=== PATIENT | female | born 1975 | race Caucasian/White ===

== ENCOUNTER → 2018-06-27 13:20 | Outpatient (CLI) | payer OTHER, SELFPAY ==
[2018-07-01 14:26] LABS: HPV Reflexed? NOT INDICATED
== END ==
PROVIDERS: Visit Provider Obstetrics & Gynecology
DX: Z12.4 Encounter for screening for malignant neoplasm of cervix (principal)
CPT/HCPCS: 88175; G0145

== ENCOUNTER → 2018-08-20 10:48 | Outpatient (CLI) | payer OTHER, SELFPAY ==
--- NOTE | 2018-08-20 10:50 | BI_ITS ---
MAMMOGRAPHY - BILATERAL SCREENING REASON FOR EXAM: Female, 43 years old. Routine annual screening examination. PERTINENT HISTORY: Aunts with breast cancer. TECHNIQUE: Digital bilateral breast gus (3D mammographic acquisition) in the CC and MLO projections. 2-D mediolateral oblique (MLO) and craniocaudad (CC) views of both breasts were obtained. CAD: Full Field Digital Mammography with Computer Added Detection was performed. COMPARISON: None. Baseline examination. FINDINGS: Breast Composition: There are scattered areas of fibroglandular density. There are no dominant masses or suspicious calcifications. No other significant abnormalities are identified. BI/SCREENING MAMM (CAD), BILAT IMPRESSION: Negative screening mammogram. Yearly followup mammogram recommended. (A) ASSESSMENT CATEGORY: BIRADS Category 1: Negative. A letter regarding these results will be sent to the patient by the facility within 30 days. Approximately 10% of breast cancers are not detected by mammography. A normal mammogram should not delay biopsy of a clinically suspicious abnormality. [id number] Electronically Signed: Adiel Benton MD at 13:16 EST Tel [phone], Service support ,
== END ==
PROVIDERS: Family Provider Family Medicine; PCP Family Medicine; Referring Provider Obstetrics & Gynecology; Visit Provider Obstetrics & Gynecology
DX: Z12.31 Encounter for screening mammogram for malignant neoplasm of breast (principal)
CPT/HCPCS: 77063; 77067

== ENCOUNTER → 2020-01-16 11:25 | Outpatient (CLI) | payer OTHER, SELFPAY ==
[2014-06-01 08:41] VITALS: BMI 35.2
[2020-01-16 15:21] LABS: Absolute Lymphocyte Count 1.26 X10^3/uL (0.83-4.51); Absolute Neutrophil Count 3.7 X10^3/uL (2.0-7.7); Basophil# 0.03 X10^3/uL; Basophil% 0.6 % (0-1); Eosinophil# 0.03 X10^3/uL; Eosinophils% 0.6 % (0-5); Hemoglobin 9.9 g/dL (12.0-15.0); Lymphocyte # 1.26 X10^3/ul (4.0); Mean Corpuscular Hgb 23.4 pg (27.0-32.0); Mean Platelet Vol. 10.9 fl (6.2-12.0); Monocyte# 0.25 X10^3/uL; Monocyte% 4.8 % (0-10); NRBC Flagged by Analyzer 0 % (0-5); Neutrophil # 3.66 X10^3/uL (2.7-7.7); Neutrophil % 69.8 % (47-70); Platelet Count 344 K/mm3 (150-450); RBC Distribution Width CV 17.4 % (11.6-14.6); RBC Distribution Width SD 49.2 fl (35.1-43.9); Red Blood Count 4.23 M/mm3 (4.2-5.4); White Blood Count 5.2 K/mm3 (4.4-11.0)
[2020-01-16 15:43] LABS: ALB/GLOB Ratio 0.9 RATIO (0.9-2.4); AST(SGOT) 26 U/L (15-37); Alanine Aminotransfer ALT/SGPT 38 U/L (13-56); Albumin, Serum 3.7 g/dL (3.2-5.0); Alkaline Phosphatase 78 U/L (45-117); Anion Gap 7 (5-15); BUN 11 mg/dL (7-18); BUN/Creat Ratio 14.3 RATIO (10-20); Calcium,Total 8.8 mg/dL (8.5-10.1); Chloride 108 mmol/L (98-107); Cholesterol 243 mg/dL (200); Creatinine, Serum 0.77 mg/dL (0.55-1.02); EST Glomerular Filtration Rate 88 mL/min (>60); Est Glom Filt Rate - Afr Amer 106 mL/min (>60); Globulin 3.9 g/dL (2.2-4.2); Glucose 95 mg/dL (74-106); High Density Lipoprotein 39 mg/dL; Potassium 3.9 mmol/L (3.5-5.1); Protein, Total 7.6 g/dL (6.4-8.2); Sodium Level 139 mmol/L (136-145); T4 Free Direct 1.18 ng/dL (0.76-1.46); Thyroid Stim Hormone (TSH) 0.89 uIU/mL (0.358-3.74); Triglycerides 80 mg/dL; Very Low Density Lipoprotein 16 mg/dL (5-40)
[2020-01-17 12:17] LABS: Ferritin 4 ng/mL (8-252); Iron 18 ug/dL (50-170); Iron Binding Capacity,Total 438 ug/dL (250-450); PERCENT IRON SATURATION 4.1 % (15.0-55.0)
[2020-01-17 13:26] LABS: Vitamin B12 832 pg/mL (211-911)
[2020-01-20 20:17] LABS: Anti-Thyroglobulin AB < 1.0 IU/mL (0.0-0.9); Thyroglobulin, Serum Qt. 39.8 ng/mL (1.5-38.5); Thyroid Peroxidase AB < 9 IU/mL (0-34)
== END ==
PROVIDERS: PCP Family Medicine; Visit Provider Family Medicine
DX: Z00.00 Encounter for general adult medical examination without abnormal findings (principal); E01.0 Iodine-deficiency related diffuse (endemic) goiter
CPT/HCPCS: 36415; 80053; 80061; 82607; 82728; 83540; 83550; 84432; 84439; 84443; 85025; 86376; 86800

== ENCOUNTER → 2020-01-27 09:13 | Outpatient (CLI) | payer OTHER, SELFPAY ==
--- NOTE | 2020-01-27 09:22 | US_ITS ---
STUDY: THYROID ULTRASOUND REASON FOR EXAM: Female, 44 years old. ENLARGED THYROID TECHNIQUE: Ultrasound evaluation of the thyroid was performed with real-time and static mc-scale imaging. COMPARISON: None. FINDINGS: RIGHT LOBE: The right lobe of the thyroid gland measures 5.4 x 2.1 x 1.9 cm. There is a homogeneous echotexture. There is a solid hypoechoic 0.5 x 0.4 x 0.3 cm nodule. LEFT LOBE: The left lobe of the thyroid gland measures 5.0 x 1.8 x 1.6 cm. There is a homogeneous echotexture. There is a solid hypoechoic 0.4 x 0.4 x 0.3 similar nodule ISTHMUS: The isthmus measures 0.5 cm. The regional lymph nodes are normal. US/Thyroid IMPRESSION: Borderline enlarged homogeneous thyroid gland with bilateral subcentimeter hypoechoic nodules. Sonography cannot distinguish between benign and aggressive nodules. Recommend either short-term, 3-6 month follow-up ultrasound to be sure stability of the nodules or further evaluation with thyroid uptake study to assess uptake characteristics. Electronically Signed: Jonathan Nelson MD at 17:02 EDT , Service support ,
== END ==
PROVIDERS: PCP Family Medicine; Referring Provider Family Medicine; Visit Provider Family Medicine
DX: E01.0 Iodine-deficiency related diffuse (endemic) goiter (principal)
CPT/HCPCS: 76536

== ENCOUNTER → 2020-02-18 12:00 | Outpatient (CLI) | payer OTHER, SELFPAY ==
[2014-06-01 08:41] VITALS: BMI 35.2
[2020-02-18 15:07] LABS: Absolute Lymphocyte Count 1.34 X10^3/uL (0.83-4.51); Absolute Neutrophil Count 3.5 X10^3/uL (2.0-7.7); Basophil# 0.05 X10^3/uL; Eosinophil# 0.03 X10^3/uL; Eosinophils% 0.6 % (0-5); Hematocrit 34.9 % (37-47); Hemoglobin 10.7 g/dL (12.0-15.0); Lymphocyte # 1.34 X10^3/ul (4.0); Lymphocyte % 25.6 % (19-41); Mean Corp Hgb Conc 30.7 g/dL (32-36); Mean Corpuscular Hgb 25.2 pg (27.0-32.0); Mean Corpuscular Volume 82.1 fL (81-99); Mean Platelet Vol. 11.1 fl (6.2-12.0); Monocyte# 0.34 X10^3/uL; Monocyte% 6.5 % (0-10); NRBC Flagged by Analyzer 0 % (0-5); Neutrophil # 3.46 X10^3/uL (2.7-7.7); Neutrophil % 66.1 % (47-70); Platelet Count 310 K/mm3 (150-450); RBC Distribution Width CV 19.3 % (11.6-14.6); RBC Distribution Width SD 57.2 fl (35.1-43.9); Red Blood Count 4.25 M/mm3 (4.2-5.4); White Blood Count 5.2 K/mm3 (4.4-11.0)
[2020-02-18 15:41] LABS: Ferritin 10 ng/mL (8-252); Iron 30 ug/dL (50-170); Iron Binding Capacity,Total 413 ug/dL (250-450)
== END ==
PROVIDERS: PCP Family Medicine; Referring Provider Family Medicine; Visit Provider Family Medicine
DX: D50.9 Iron deficiency anemia, unspecified (principal)
CPT/HCPCS: 36415; 82728; 83540; 83550; 85025

== ENCOUNTER → 2020-04-14 | Outpatient (CLI) | payer OTHER, SELFPAY ==
--- NOTE | 2020-04-14 | EMB_PTH ---
PATIENT: BRANDT MUNROE LOC: [facility] U#:[id number] AGE/SX: 44/F ROOM: RE04/14/[address]: Dr. Ximena Byers, : 1975 BED: DIS: 04/14/2020 SPEC #: [id number] RECD: 04/14/20 17:08 STATUS: RADHA DANIELLE #: [id number] CORY: 04/14/20 00:[address]: Ximena Byers DEPT: SURGICAL PATHOLOGY RECD BY: Gerry Rollins ENTERED: 04/15/20 09:06 SP TYPE: ENDOM BX/C RIK DR: Dr. Wan Christensen MD Tissues: Endometrium, NOS Procedures: Surgery Specimen Level IV HEADER OPERATION: Endometrial biopsy PRE-OP DIAGNOSIS: Abnormal uterine bleeding TISSUE SUBMITTED: Endometrial biopsy MICROSCOPIC DIAGNOSIS Endometrium, biopsy: Weakly proliferative endometrium with focal glandular breakdown. AM:carlos 04/16/20 MICROSCOPIC DESCRIPTION Slides are reviewed. GROSS DESCRIPTION Received in fixative is one container labeled with the patient's name and designated EMB. The specimen consists of multiple fragments of hemorrhagic soft tissue mixed with mucoid tissue that in aggregate measure 2.5 x 1.5 x 0.2 cm. The specimen is totally submitted in one cassette. / KYLE:carlos 04/15/20 TC:5 CPT: 88193
== END | disposition home or self-care (01) ==
LOC: LABSPEC 04-15 06:06
PROVIDERS: PCP Family Medicine; Referring Provider Student in an Organized Health Care Education/Training Program; Visit Provider Student in an Organized Health Care Education/Training Program
DX: N85.8 Other specified noninflammatory disorders of uterus (principal)
CPT/HCPCS: 88305

== ENCOUNTER → 2020-05-11 11:19 | Outpatient (CLI) | payer OTHER, SELFPAY ==
[2014-06-01 08:41] VITALS: BMI 35.2
[2020-05-11 15:23] LABS: Absolute Lymphocyte Count 1.64 X10^3/uL (0.83-4.51); Absolute Neutrophil Count 5.9 X10^3/uL (2.0-7.7); Basophil# 0.05 X10^3/uL; Basophil% 0.6 % (0-1); Eosinophil# 0.04 X10^3/uL; Eosinophils% 0.5 % (0-5); Hematocrit 39.8 % (37-47); Hemoglobin 12.3 g/dL (12.0-15.0); Lymphocyte # 1.64 X10^3/ul (4.0); Lymphocyte % 20.3 % (19-41); Mean Corp Hgb Conc 30.9 g/dL (32-36); Mean Corpuscular Hgb 26.5 pg (27.0-32.0); Mean Corpuscular Volume 85.6 fL (81-99); Mean Platelet Vol. 10.9 fl (6.2-12.0); Monocyte# 0.47 X10^3/uL; Monocyte% 5.8 % (0-10); NRBC Flagged by Analyzer 0 % (0-5); Neutrophil # 5.85 X10^3/uL (2.7-7.7); Neutrophil % 72.6 % (47-70); Platelet Count 281 K/mm3 (150-450); RBC Distribution Width CV 16.6 % (11.6-14.6); RBC Distribution Width SD 52.1 fl (35.1-43.9); Red Blood Count 4.65 M/mm3 (4.2-5.4); White Blood Count 8.1 K/mm3 (4.4-11.0)
[2020-05-11 15:40] LABS: ALB/GLOB Ratio 0.9 RATIO (0.9-2.4); AST(SGOT) 53 U/L (15-37); Alanine Aminotransfer ALT/SGPT 99 U/L (13-56); Albumin, Serum 3.7 g/dL (3.2-5.0); Alkaline Phosphatase 77 U/L (45-117); Anion Gap 5 (5-15); BUN 9 mg/dL (7-18); Calcium,Total 8.7 mg/dL (8.5-10.1); Chloride 107 mmol/L (98-107); Cholesterol 177 mg/dL (200); Creatinine, Serum 0.75 mg/dL (0.55-1.02); EST Glomerular Filtration Rate 90 mL/min (>60); Est Glom Filt Rate - Afr Amer 108 mL/min (>60); Ferritin 10 ng/mL (8-252); Glucose 83 mg/dL (74-106); High Density Lipoprotein 45 mg/dL; Iron 45 ug/dL (50-170); Iron Binding Capacity,Total 416 ug/dL (250-450); Potassium 4.2 mmol/L (3.5-5.1); Protein, Total 7.7 g/dL (6.4-8.2); Sodium Level 138 mmol/L (136-145); Triglycerides 68 mg/dL; Very Low Density Lipoprotein 14 mg/dL (5-40)
[2020-05-12 11:01] LABS: Hepatitis B Surface Antigen Non-Reactive (Nonreactive); Hepatitis C Antibody Non-Reactive (Nonreactive)
[2020-05-13 17:25] LABS: Hepatitis Be Ab Negative (Negative)
== END ==
PROVIDERS: PCP Family Medicine; Referring Provider Family Medicine; Visit Provider Family Medicine
DX: E78.5 Hyperlipidemia, unspecified (principal); D50.9 Iron deficiency anemia, unspecified; R79.89 Other specified abnormal findings of blood chemistry
CPT/HCPCS: 36415; 80053; 80061; 82728; 83540; 83550; 85025; 86707; 86803; 87340

== ENCOUNTER 2020-06-25 10:26 | Inpatient (IN) | payer OTHER, SELFPAY ==
[2020-06-18 12:12] LABS: Hematocrit 41.8 % (37-47); Hemoglobin 13.3 g/dL (12.0-15.0); Mean Corp Hgb Conc 31.8 g/dL (32-36); Mean Corpuscular Hgb 28.1 pg (27.0-32.0); Mean Corpuscular Volume 88.2 fL (81-99); Mean Platelet Vol. 10.8 fl (6.2-12.0); Platelet Count 250 K/mm3 (150-450); RBC Distribution Width CV 15.5 % (11.6-14.6); RBC Distribution Width SD 50.1 fl (35.1-43.9); Red Blood Count 4.74 M/mm3 (4.2-5.4); White Blood Count 6.4 K/mm3 (4.4-11.0)
[2020-06-18 12:21] LABS: International Normalized Ratio 1.1; Prothrombin Time (Protime)PT. 13.2 SECONDS (11.7-14.9)
[2020-06-18 12:22] LABS: Partial Thromboplast Time 24.4 Seconds (24.1-36.2)
--- NOTE | 2020-06-24 18:39 | PCM.HPOB.BLA ---
History and Physical Date of Admission: 06/25/20 Date: 06/24/2020 Name: BRANDT MATUTE Age: 45 Date of : 1975 Surgical History and Physical Date: 06/24/2020 Name: BRANDT MATUTE Age: 45 Date of : 1975 Brandt Matute, a 45 year old female 2 0 5 0 2, presents for KONG-BS on June 25, 2020. Patient reports irregular, heavy periods. Brings a log of her periods for the past 7 months. LMP 03/22/2020, stopped bleeding 04/09. Heavy bleeding x 4 days; saturates an overnight pad q hr during the day and night ( with 1 night being the worst) prohibiting her from leaving the house. She reports blood clots during menses, cramping, but she does not take anything for it and does not use a heating pad. Hx known fibroids, last pelvic US here was 07/2018. Hx BTO. Med list updated. Consent signed for Endometrial Biopsy. Hx BTO. Denies any known allergy to Betadine. kbm EMB was completed and benign. Ultrasound showed 13 cm uterus. Consent signed. Hysterectomy / Salpingectomy literature given. Coupon Chlorhexidine Body Wash given to be picked up @ [facility] Retail pharmacy today. Reviewed shower instructions. MEDICATIONS HISTORY: Patient is also takin. Calcium Magnesium 500 mg calcium -250 mg tablet, 1 daily 2. aspirin 81 mg chewable tablet, One tablet by mouth 2 x daily 3. Crestor 20 mg tablet, One tablet by mouth once daily ALLERGIES: Percocet, Severe itching, Vicodin, Severe itching, Percocet, Itching of skin, Vicodin and Itching of skin Infections - Chicken Pox, UTI's Illnesses - no serious past illnesses, hyperlipidemia and MTHFR (no VTE) Accidents - no injuries of consequence Hospitalizations - see surgery SAB's x 5 Review of Systems: GENERAL - Denies fever, or chills SKIN - Denies skin changes EYES - Denies visual changes EARS - Denies difficulty hearing NOSE - Denies nasal congestion or bleeding MOUTH - Denies sore throat or difficulty swallowing NECK - Denies pain or swelling RESPIRATORY - Denies shortness of breath or wheezing CARDIOVASCULAR - Denies palpitations or chest pain GASTROINTESTINAL - Denies nausea, vomiting, diarrhea, constipation GENITOURINARY - Denies dysuria, frequency of urination, incontinence of urine MUSCULOSKELETAL - Denies joint or muscle pain NEUROLOGICAL - Denies localized numbness or weakness PSYCHIATRIC - Denies depression or anxiety ENDOCRINE - Denies heat or cold intolerance, weight loss or gain HEMATO-IMMUNOLOGIC - Denies excesive bleeding with cuts SOCIAL HISTORY: Alcohol Use - denies drinking Smoking - Never Diet - balanced Diet Lifestyle - moderate stress lifestyle and Exercise - walking, tread mill Seat Belt Use - always Employer - [employer] Illicit Drug Use - denies use of street drugs Sexual Activity - single sexual partner and Residence - lives with Place of - [place], [place] Spouse-Sig Other Name - Jeremías Matute Spouse-Sig Other Occupation - [employer] Spouse-Sig Other Phone No - [phone] Children Name(s) - Wan Veronica '10 Ty Oakley '14 Control - BTO FAMILY HISTORY: Father: Heart Disease. Maternal Grandfather: NIDDM and Heart Disease. Paternal Grandfather: Heart Disease. Maternal Aunt: Breast cancer. MENSTRUAL HISTORY: LMP Known?- DefiniteAmount/Duration - 20 days, Regularity - Regular, Frequency - monthly days, Prior Menses - 12/16/2003, LMP - 06/17/20, Age Onset Menarche - 14 PAST PREGNANCIES: Total Pregnancies - 7; Full Term Pregnancies - 2; Premature - 0; Abortions, Induced - 0; Abortions, Spontaneous - 5; Ectopics - 0; Multiple Births - 0; Living Children - 2 SURGICAL HISTORY: 1. 03/23/2011 gallbladder ; - 2. 06/01/2014 /enterolysis, Lap BTO with filshie ; Yari Snyder MD - 3. 04/21/2006 Appendectomy ; Dr Lozada - 4. 10/02/2008 Removal of Fibroids ; Dr. Melendez - Menorrhagia 5. 06/02/2010 ; Yari Snyder MD - 6. 06/02/2010 Primary Low Transverse C/S + Enterolysis ; Dr. Yari Snyder - GD, Polyhydramnios, Prior large myomectomy of uterus PHYSICAL EXAM BP- 134/80 Temp- 97.0 Taken Orally Weight- 197.60744 lbs Height- 64 inch BMI:33.89 CONSTITUTIONAL - NAD, well nourished, and well developed SKIN - No rash, lesions, or ulcers HEENT - Normocephalic, PERRLA, EOMI LUNGS - normal respiratory rate and rhythm EXTREMITIES - No edema or calf tenderness NEUROLOGICAL - Cranial nerves II-XII grossly intact PSYCHIATRIC - A and O to time, place, person, mood and affect External Genitial Vagina - non-tender without lesions Urethra/Urethral Meatus - non-tender Bladder - non-tender Vagina - vaginal herrera are pink and moist without loss of rugae and no evidence of atropy Cervix - without cervical motion tenderness and has normal size and features without evident lesions UTERUS: enlarged Laboratory Last Values WBC 6.4 K/mm3 (4.4-11.0) 06/18/20 11:51 RBC 4.74 M/mm3 (4.2-5.4) 06/18/20 11:51 Hgb 13.3 g/dL (12.0-15.0) 06/18/20 11:51 Hct 41.8 % (37-47) 06/18/20 11:51 MCV 88.2 fL (81-99) 06/18/20 11:51 MCH 28.1 pg (27.0-32.0) 06/18/20 11:51 MCHC 31.8 g/dL (32-36) L 06/18/20 11:51 RDW Std Deviation 50.1 fl (35.1-43.9) H 06/18/20 11:51 RDW Coeff of [facility] 15.5 % (11.6-14.6) H 06/18/20 11:51 Plt Count 250 K/mm3 (150-450) 06/18/20 11:51 MPV 10.8 fl (6.2-12.0) 06/18/20 11:51 PT 13.2 SECONDS (11.7-14.9) 06/18/20 11:51 INR 1.1 06/18/20 11:51 APTT 24.4 Seconds (24.1-36.2) 06/18/20 11:51 COVID-19 (LEANA) Not Detected (Not Detected) 06/18/20 10:32 Blood Type A POSITIVE 06/18/20 11:52 Antibody Screen NEGATIVE 06/18/20 11:52 ASSESSMENT/PLAN: 1. Abnormal Uterine Bleeding, Unspec Admit for total abdominal hysterectomy, bilateral salpingectomy, possible oophorectomy. R/B/A discussed again with patient today. Risks include, but are not limited to: risk of bleeding to the point of transfusion, infections, injury to surrounding tissue (bowel/bladder requiring prolonged Samuels use), VTE, ICU admission. Will remove ovaries if abnormal in appearance as discussed in office. Patient aware and consented. 2. Leiomyoma Of Uterus, Unspecified Enlarged 13 cm uterus with mutiple fibroids. Heavy menses and pelvic pressure.
[2020-06-25] VITALS (11 sets, daily range): BP systolic 104–127; BP diastolic 50–82; PULSE 67–87; RESP 16; TEMP 36.2–37; O2SAT 93–100; BMI 32.4
[2020-06-25] MEDS: Lactated Ringers 1,000 ML 100 ML IV (11:29)
[2020-06-25 11:59] LABS: Internal QC Validated? YES +Cl - CLEAR BKGD; Pregnancy, Serum, hCG Quali. NEGATIVE Negative
[2020-06-25] MEDS: Cefazolin 2 GM in 0.9% Normal Saline 100 ML IV (12:25)
--- NOTE | 2020-06-25 12:30 | HYST_PTH ---
PATIENT: BRANDT MUNROE LOC: MS3 U#:[id number] AGE/SX: 45/F ROOM: [facility] [place] RE06/25/[address]: Dr. Ximena Byers DO : 1975 BED: 1 DIS: 06/26/2020 SPEC #: [id number] RECD: 06/25/20 14:27 STATUS: RADHA REFrida #: [id number] CORY: 06/25/20 12:[address]: Ximena Byers DEPT: SURGICAL PATHOLOGY RECD BY: Salvador Guerrero ENTERED: 06/26/20 08:08 SP TYPE: HYSTERECT OTHR DR: MD Dr. Wan Muse MD Tissues: Uterus, NOS Procedures: Surgery Specimen Level V HEADER OPERATION: Hysterectomy, salpingectomy PRE-OP DIAGNOSIS: Abnormal uterine bleeding, leiomyoma of uterus TISSUE SUBMITTED: Uterus, cervix, bilateral fallopian tubes MICROSCOPIC DIAGNOSIS Uterus, cervix, bilateral fallopian tubes, hysterectomy and bilateral salpingectomy: Cervix - mild chronic inflammation. Endometrium - proliferative endometrium. Myometrium - leiomyomas (largest measuring 4 cm in greatest dimension). - Focal adenomyosis. Bilateral fallopian tubes - no pathologic diagnosis. KYLE:carlos 06/29/20 MICROSCOPIC DESCRIPTION Slides are reviewed. GROSS DESCRIPTION Received in fixative is one container labeled with the patient's name and designated uterus, cervix and bilateral fallopian tubes. The specimen consists of a hysterectomy specimen consisting of uterus with cervix, detached nodular piece of tissue and detached bilateral fallopian tubes. The uterus with cervix and detached nodular piece weigh in aggregate 284 gm. The uterus with cervix measures 15 x 9 x 7 cm and detached nodular piece measures 4 x 3.5 x 2.5 cm. The serosal surface is ragged. The ectocervical mucosa is unremarkable. The external os is slit-like in contour. The endocervical canal measures 4 cm in length and the endocervical mucosa is unremarkable. The triangular endometrial cavity measures 6 cm in length and up to 3 cm in width. The endometrium is hagan, glistening without any mass lesion and measures 0.2 cm in thickness. A focal area is noted in the anterior uterine most likely representing site of detached nodular mass. Sections of the uterine wall reveal multiple intramural nodular masses. The largest mass measures 3 cm in greatest dimension. Sections of these masses and detached reveal hagan whorled cut surfaces without areas of hemorrhage, necrosis or cystic degeneration. The uninvolved uterine wall measures up to 3.5 cm in thickness. The bilateral fallopian tubes are not identified as right or left. One of the fallopian tubes measures 5 cm in length and 0.5 cm in diameter. Sections reveal unremarkable cut surfaces. The fimbrial end is identified. A Filshie clip is noted on the proximal portion of the fallopian tube. This appears intact. The second fallopian tube appears to be partly disrupted and measures 3.5 cm in length and 0.5 cm in diameter. No Filshie clip is noted. The fimbrial end is identified. Sections reveal unremarkable cut surfaces. [employer]sembler [employer]bags sections are submitted in 12 cassettes as follows: 1 - anterior cervix, 2 - posterior cervix, 3 & 4 - anterior uterine wall, 5 & 6 - posterior uterine wall, 7??largest intramural nodular mass, 8 - smaller intramural nodular mass, 9 & 10 - detached largest nodular mass 11 - fallopian tube without Filshie clip, 12 - fallopian tube with Filshie clip. / SJ:carlos 06/26/20 TC:1 CPT: 95941
--- NOTE | 2020-06-25 15:01 | OP.PCM_ITS ---
Report of Operation Date of Procedure: 06/25/20 Pre-Operative Diagnosis: Menorrhagia, Fibroid uterus Post-Operative Diagnosis: Menorrhagia, Fibroid uterus. Adhesions. Cystotomy. Surgery/Procedure Performed:: Total abdominal hysterectomy, bilateral salpingectomy, lysis of adhesions. Cystotomy repair. Description of Surgical Findings:: Normal-appearing external genitalia. Enlarged fibroid uterus. Extensive adhesions involving the bladder, adhesions also noted at Fallopian tube, left side. Two filshie clips on left tube, one on right. Cystotomy noted. See operative note for further details. carding utility tender: None carding utility tender: Wan Oliver Type of Anesthesia:: General Specimen's removed: Uterus, cervix, bilateral fallopian tubes Estimated Blood Loss (mL): 750 cc Fluids Replaced: 1800cc Description of Procedure: Patient taken to the operating room and placed under general anesthesia. Patient prepped and draped in the usual sterile fashion in the dorsal supine position. Samuels catheter placed and drained to gravity. Pfannenstiel skin incision made with scalpel and carried down through underlying subcutaneous tissue scalpel used to incise fascia bilaterally with extension using Rushing scissors. Michele clamps used to grasp superior fascial edge which was tented up and underlying rectus muscles were dissected off using Bovie cautery and Rushing scissors. Adhesions were noted through small separation between the rectus muscles. Michele clamps removed the inferior fascial edge which was tented up and underlying rectus muscles were dissected off using Rushing scissors. Careful dissection of adhesions was completed and entry into the peritoneal cavity was achieved. Bookwalter retractor was set up with 1 wet blue towel intra- abdominally to retract bowel. Adhesions noted between the bladder and the anterior of the uterus. On the left lateral side adhesion were taken down using Metzenbaum scissors. Bladder retractor was placed. After round ligament was identified and suture-ligated, Bovie was used to incise. Further lysis of adhesions were completed along the vesico-uterine peritoneum using Metzenbaum scissors. Broad ligament was opened and dissected parallel to the IP ligament. Window in the broad ligament was made underneath the utero-ovarian ligament. Dissection of the medial leaf of the broad ligament noted that the ureter was far away from area of dissection. Utero-ovarian ligament was clamped, cut. Free tie was used followed by transfixation stitch. The right round ligament was identified, ligated with suture and incised using Bovie. Bladder dissection was carried down this right side as well. Right utero ovarian ligament was clamped cut, free tied and suture ligated. Ureter was noted to be far below area of dissection. Right uterine artery was identified clamped cut and suture- ligated. At this time a cystotomy was noted with visualization of the Samuels balloon. Dr. Kellogg was notified for assistance. Decision to proceed with completion of hysterectomy was made to allow for better visualization during cystotomy repair. Left uterine artery was clamped, cut, suture ligated. Dissection was carried down on the right along the uterus. Clamp, cutting, suture ligating to allow the uterine artery to fall away from the uterus. This was carried out in a similar fashion on the left side. At the level of the cervix a curved Zeppelin was used to clamp underneath the cervix and uterus and cervix removed using Joe scissors. The angles were suture-ligated in 2 [id number] stitches were placed at the vaginal cuff medially. Right fallopian tube was identified, clamped, removed with Metzenbaum scissors. Mesosalpinx was suture ligated and hemostatic. At that time Dr. Kellogg arrived and repaired cystotomy. See his dictation for further details. Left fallopian tube was then identified. Mesosalpinx was clamped and fallopian tubes removed with Metzenbaum scissors. Mesosalpinx was then suture-ligated. Ovaries were normal in appearance bilaterally. Some oozing was noted in the posterior cul-de- sac which was stopped with [id number] stitches. Upon further inspection vaginal cuff, posterior cul-de-sac, pelvic sidewalls were hemostatic. Jun was placed. Retractors were removed, blue towel was removed as well. Rectus muscles were then reapproximated using horizontal mattress sutures. Fascia was closed in a running fashion. Subcutaneous tissue was closed in a running fashion. And skin was closed with a running subcuticular stitch. At the end of the procedure all needle, lap, sponge counts were correct x3.
[2020-06-25] MEDS: Ondansetron 4 MG/2 ML Vial IV (17:15)
[2020-06-25] MEDS: HYDROmorphone 0.5 MG/0.5 ML SYRINGE IV (17:15)
[2020-06-25] MEDS: 0.9% Saline Lock 10 ML Syringe IV (17:16)
[2020-06-25] MEDS: Lactated Ringers 1,000 ML 125 ML IV ×2 (17:16→23:22)
--- NOTE | 2020-06-25 17:46 | PCM.OPRPT ---
Report of Operation Date of Procedure: 06/25/20 Pre-Operative Diagnosis: Bladder injury Post-Operative Diagnosis: The same Surgery/Procedure Performed:: Open repair of bladder cystotomy Description of Surgical Findings:: 45-year-old female is undergoing an open hysterectomy by the gynecological service I was called in because during the surgery a tear in the bladder was recognized at the dome of the bladder and the top of the bladder. When I came in to see the patient she was asleep on the table supine she had a lower Pfannenstiel incision and the uterus have been removed the pedicles were being stitched closed. On inspection the top of the bladder there was a 6 cm laceration in the top of the bladder I could see the Samuels catheter below I inspected the bladder completely no other laceration was identified deep inside the bladder he could see the ureteral orifices. The Samuels catheter was in place I then closed the bladder in 2 layers the first layer I used a 3-0 Vicryl in a running fashion to close the mucosa and muscle layer and then I closed the mucosal and serosal layer and the second layer with a 2-0 Vicryl imbricating fashion to close the bladder in 2 layers. We then had the catheter retrograde filled with 350 cc of saline. There was no obvious leakage from the repair appeared to be watertight closure. The catheter was then set to gravity drainage I then scrubbed out of the surgery and the gynecological service then finished with her surgeon surgery. She will be given follow-up instructions to keep the catheter in for discharge to home and she will follow-up with urology in 2 weeks to remove the catheter. Type of Anesthesia:: General Drains: Samuels - Admit VTE Documentation VTE Present on Admission: No
[2020-06-25] MEDS: Ketorolac 15 MG/ML Vial IV (18:31)
[2020-06-26 00:43] VITALS: BP 111/58; PULSE 79; RESP 16; TEMP 36.6; O2SAT 96
[2020-06-26] MEDS: Ketorolac 15 MG/ML Vial IV ×3 (01:01→12:45)
[2020-06-26 04:43] VITALS: BP 116/64; PULSE 81; RESP 16; TEMP 36.8; O2SAT 96
[2020-06-26 06:19] LABS: Hematocrit 26.5 % (37-47); Hemoglobin 8.5 g/dL (12.0-15.0); Mean Corp Hgb Conc 32.1 g/dL (32-36); Mean Corpuscular Hgb 28.6 pg (27.0-32.0); Mean Corpuscular Volume 89.2 fL (81-99); Mean Platelet Vol. 11.4 fl (6.2-12.0); Platelet Count 226 K/mm3 (150-450); RBC Distribution Width CV 15.3 % (11.6-14.6); RBC Distribution Width SD 50.4 fl (35.1-43.9); Red Blood Count 2.97 M/mm3 (4.2-5.4); White Blood Count 12.8 K/mm3 (4.4-11.0)
[2020-06-26] MEDS: Acetaminophen 500 MG Tablet 1000 MG PO (06:27)
[2020-06-26] MEDS: Lactated Ringers 1,000 ML 125 ML IV (06:27)
[2020-06-26 06:37] LABS: Creatinine, Serum 0.62 mg/dL (0.55-1.02); EST Glomerular Filtration Rate 112 mL/min (>60); Est Glom Filt Rate - Afr Amer 136 mL/min (>60); Estimated Creatinine Clearance 101.03 ml/min
[2020-06-26 07:40] VITALS: O2SAT 97
[2020-06-26] MEDS: 0.9% Saline Lock 10 ML Syringe IV ×2 (07:53→12:45)
[2020-06-26] MEDS: Enoxaparin 40 MG/0.4 ML Syringe SC (07:53)
[2020-06-26 08:03] VITALS: BP 107/62; PULSE 79; RESP 18; TEMP 36.7; O2SAT 98
--- NOTE | 2020-06-26 08:04 | PCM.PN.BLA ---
Progress Note POD#1 Subjective: Feeling well, up in chair. [place] a little dizzy when first getting up this morning. Denies flatus. Tolerating oral intake. Objective: Vitals: Vital Signs Temp Pulse Resp BP Pulse Ox 06/26/20 04:43 98.3 F 81 16 116/64 96 06/26/20 00:43 97.8 F 79 16 111/58 L 96 06/25/20 20:43 97.8 F 69 16 124/71 H 100 GEN: NAD HEENT: NC/AT HEART: RRR LUNGS: CTAB ABDOMEN: soft, mildly tender. Dressing clean/dry. Bowel sounds present, normoactive. EXT: no edema Labs: Laboratory Tests 06/26/20 06/26/20 06/25/20 Range/Units 05:45 05:45 11:40 WBC 12.8 H (4.4-11.0) K/mm3 RBC 2.97 L (4.2-5.4) M/mm3 Hgb 8.5 L (12.0-15.0) g/dL Hct 26.5 L (37-47) % MCV 89.2 (81-99) fL MCH 28.6 (27.0-32.0) pg MCHC 32.1 (32-36) g/dL RDW Std Deviation 50.4 H (35.1-43.9) fl RDW Coeff of [facility] 15.3 H (11.6-14.6) % Plt Count 226 (150-450) K/mm3 MPV 11.4 (6.2-12.0) fl Creatinine 0.62 (0.55-1.02) mg/dL Estim Creat Clear Calc 101.03 ml/min Est GFR (MDRD) Af Amer 136 (>60) mL/min Est GFR (MDRD) Non-Af 112 (>60) mL/min Serum , Qual NEGATIVE Negative A/P: 45 yo female post op day #1 s/p total abdominal hysterectomy, bilateral salpingectomy, lysis of adhesions, cystotomy repair for menorrhagia and fibroid uterus. Complicated by: cystotomy, acute blood loss anemia secondary to surgery. 1. Post operative -Acute blood loss anemia secondary to surgery. Iron on home going 3 times weekly. -Toradol and tylenol for pain, PRN oxycodone with benadryl available for pruritis -Maintain maher catheter for 2 weeks with follow up with urology at that time. -Ambulate, incentive spirometry Diet: Regular IVFs: HLIV DVT PPx: SCDs, lovenox qD Dispo: Desires home going today. Will reassess this afternoon. STROKE Vital Signs/Narrative: Vital Signs Temp Pulse Resp BP Pulse Ox 06/26/20 04:43 98.3 F 81 16 116/64 96
--- NOTE | 2020-06-26 10:10 | CASEMGMT ---
RN EVIN Face to Face with patient for initial transition planning/care coordination assessment. RN CM introduced self and role at [facility]. Patient lying in bed, alert and oriented. Patient willing to participate in assessment and is able to answer all questions appropriately. Care providers, pharmacy, and demographics verified. Patient wishes to discharge home, denies need for home health at this time. Patient states she has no further needs or concerns at this time. CM to follow for discharge planning needs that may arise. PCP: Fermin Specialists: None Preferred Pharmacy: [facility] Retail Rx/ [facility] Insurance: Jipio Prescription Benefit: yes Living Will/HPOA: none LNOK: Jeremías Living Arrangements: Patient lives with in a raised ranch with 6 steps and railing to enter the home. Patient states she is independent at home. Transportation: self/ DME/HHC: Patient denies DME or previous HHC Disposition Plan: Patient to discharge home with family support and follow-up plans in place. Sury CALDERON, RN, CM
[2020-06-26 14:11] VITALS: BP 106/54; PULSE 81; RESP 18; TEMP 36.6; O2SAT 98
[2020-06-26] MEDS: Acetaminophen 325 MG Tablet 650 MG PO (16:34)
--- NOTE | 2020-06-26 16:36 | DCINST_ITS ---
Discharge Diet: No Restrictions Discharge Activity: Return to Normal Activity, May Shower May resume sexual activity in: 6 weeks Weight Bearing Status: Weight bearing as tolerated Call your doctor if your incision/area has: Continuous Slow Oozing, Sudden Increased Bleeding, Increased Pain/ Swelling, Increased Redness Call your doctor if you observe: Fever of 101 or Higher, Inability to urinate, Inability to have a bowel movement, Using more than one pad per hour Cleanse incision/area with: Soap & Water Allergies/Adverse Reactions: Allergies hydrocodone bitartrate [From Vicodin] Allergy (Verified 06/17/20 11:07) Hives oxycodone HCl [From Percocet] Allergy (Verified 06/17/20 11:07) Hives Medications to take at Discharge Aspirin [Aspirin, Baby] 81 mg PO BID 06/17/20 Calcium Carbonate/Magnesium Ox [Super Todd-Mag Tablet] 2 ea PO QHS 06/17/20 Ferrous Sulfate, Dried [Iron] 65 mg PO BID 06/17/20 Multivitamin [Daily Multiple Vitamin] 1 ea PO DAILY 06/17/20 Rosuvastatin Calcium [Crestor] 20 mg PO QHS 06/17/20 Oxycodone [Oxyir] 5 mg PO Q6H PRN PRN 3 Days #12 tab 06/26/20 The following prescriptions were given: Oxycodone [Oxyir] 5 mg PO Q6H PRN PRN 3 Days #12 tab PRN Reason: Pain Score 6-10 Transmission Status: Received by [facility] Primary Care Physician: Wan Christensen MD [Primary Care Provider] - Test Results: Test results from this visit will be discussed in further detail at your follow- up appointment, if applicable. Please Follow Up With: Ximena Byers DO When: 2 weeks Please Follow Up With: Sammy Kellogg MD When: 2 weeks Proposed Discharge Date: 06/26/20
== END 2020-06-26 18:05 | disposition home or self-care (01) | DRG 982 ==
LOC: ACINP 10:29 → MS3 15:24
PROVIDERS: Anesthesiology; Admitting Provider Student in an Organized Health Care Education/Training Program; PCP Family Medicine; Referring Provider Student in an Organized Health Care Education/Training Program; Visit Provider Student in an Organized Health Care Education/Training Program
PROC: 0UT90ZZ Resection of Uterus, Open Approach (ICD-10-PCS; CPT 58150; principal; 2020-06-25 12:10)
DX: D62 Acute posthemorrhagic anemia (principal); N99.71 Accidental puncture and laceration of a genitourinary system organ or structure during a genitourinary system procedure; Y65.8 Other specified misadventures during surgical and medical care; Y92.234 Operating room of hospital as the place of occurrence of the external cause; D25.9 Leiomyoma of uterus, unspecified; N80.0 Endometriosis of uterus; K66.0 Peritoneal adhesions (postprocedural) (postinfection); N92.0 Excessive and frequent menstruation with regular cycle; E78.00 Pure hypercholesterolemia, unspecified; Z11.59 Encounter for screening for other viral diseases; Z79.82 Long term (current) use of aspirin; Z79.899 Other long term (current) drug therapy
CPT/HCPCS: 36415; 82565; 84703; 85027; 85610; 85730; 86850; 86900; 86901; 87635; 88307; 99251; C9803; J7120; A4216; G0463; J2405; U0003

== ENCOUNTER → 2020-07-07 09:43 | Outpatient (CLI) | payer OTHER, SELFPAY ==
[2020-06-25 16:57] VITALS: BMI 32.4
--- NOTE | 2020-07-07 09:45 | RAD_ITS ---
CLINICAL HISTORY: Female, 45 years old. Follow-up for laceration of the urinary bladder. PROCEDURE: Cystogram. FLUOROSCOPY TIME (if supplied): (32 seconds) minutes/seconds 25th mL of contrast installed into the bladder in a retrograde fashion through indwelling LÓPEZ catheter. The radiology installed the contrast into the bladder. TECHNIQUE: (All elements of maximal sterile barrier technique followed, including US elements as applicable) RAD/Cystography min 3 Views IMPRESSION: The urinary bladder was filled with contrast. No evidence of leakage. Electronically Signed: Adiel Benton, at 11:12 EDT , Service support ,
== END ==
PROVIDERS: PCP Family Medicine; Referring Provider Urology; Visit Provider Urology
DX: S37.23XA Laceration of bladder, initial encounter (principal)
CPT/HCPCS: 51600; 74430; Q9965

== ENCOUNTER → 2020-08-14 11:20 | Outpatient (CLI) | payer OTHER, SELFPAY ==
[2020-06-25 16:57] VITALS: BMI 32.4
--- NOTE | 2020-08-14 11:25 | RAD_ITS ---
STUDY: X-RAY CHEST REASON FOR EXAM: Female, 45 years old. ACUTE BRONCHITIS, CHEST HEAVINESS TECHNIQUE: PA and lateral views of the chest. COMPARISON: None. FINDINGS: The lungs are clear and expanded. There is no demonstrated pleural abnormality. Normal size heart. Normal mediastinum and kevin. Normal visualized pulmonary arteries. Normal visualized aortic arch and descending thoracic aorta. Normal visualized thoracic spine. Normal visualized ribs, clavicles, and shoulders. There is no demonstrated abnormality of the visualized soft tissue structures of the upper abdomen. RAD/Chest PA and Lateral IMPRESSION: Normal x-ray examination of the chest. Electronically Signed: Adiel Benton, at 12:58 EST , Service support ,
== END ==
PROVIDERS: PCP Family Medicine; Referring Provider Family Medicine; Visit Provider Family Medicine
DX: J20.9 Acute bronchitis, unspecified (principal)
CPT/HCPCS: 71046; 87635; U0003

== ENCOUNTER → 2020-08-19 10:00 | Outpatient (CLI) | payer OTHER, SELFPAY ==
[2020-06-25 16:57] VITALS: BMI 32.4
[2020-08-19 12:24] LABS: Absolute Lymphocyte Count 1.49 X10^3/uL (0.83-4.51); Absolute Neutrophil Count 3.2 X10^3/uL (2.0-7.7); Basophil# 0.05 X10^3/uL; Eosinophil# 0.03 X10^3/uL; Eosinophils% 0.6 % (0-5); Hematocrit 35.8 % (37-47); Hemoglobin 10.9 g/dL (12.0-15.0); Lymphocyte # 1.49 X10^3/ul (4.0); Lymphocyte % 28.8 % (19-41); Mean Corp Hgb Conc 30.4 g/dL (32-36); Mean Corpuscular Hgb 25.7 pg (27.0-32.0); Mean Corpuscular Volume 84.4 fL (81-99); Mean Platelet Vol. 11.4 fl (6.2-12.0); Monocyte# 0.44 X10^3/uL; Monocyte% 8.5 % (0-10); NRBC Flagged by Analyzer 0 % (0-5); Neutrophil # 3.15 X10^3/uL (2.7-7.7); Neutrophil % 60.9 % (47-70); Platelet Count 290 K/mm3 (150-450); RBC Distribution Width CV 13.9 % (11.6-14.6); RBC Distribution Width SD 43.2 fl (35.1-43.9); Red Blood Count 4.24 M/mm3 (4.2-5.4); White Blood Count 5.2 K/mm3 (4.4-11.0)
[2020-08-19 12:49] LABS: Ferritin 15 ng/mL (8-252); Iron 52 ug/dL (50-170); Iron Binding Capacity,Total 368 ug/dL (250-450); PERCENT IRON SATURATION 14.1 % (15.0-55.0)
[2020-08-19 13:12] LABS: Hepatitis B Surface Antibody Non-Reactive; Hepatitis B Surface Antigen Non-Reactive (Nonreactive); Hepatitis C Antibody Non-Reactive (Nonreactive)
== END ==
PROVIDERS: PCP Family Medicine; Referring Provider Family Medicine; Visit Provider Family Medicine
DX: D50.9 Iron deficiency anemia, unspecified (principal); R94.5 Abnormal results of liver function studies
CPT/HCPCS: 36415; 82728; 83540; 83550; 85025; 86706; 86803; 87340

== ENCOUNTER → 2020-09-15 11:51 | Outpatient (CLI) | payer OTHER, SELFPAY ==
[2020-06-25 16:57] VITALS: BMI 32.4
--- NOTE | 2020-09-15 11:53 | BI_ITS ---
MAMMOGRAPHY - BILATERAL SCREENING REASON FOR EXAM: Female, 45 years old. Routine annual screening examination. PERTINENT HISTORY: Aunts with breast cancer. TECHNIQUE: Digital bilateral breast shabnam (3D mammographic acquisition) in the CC and MLO projections. 2-D mediolateral oblique (MLO) and craniocaudad (CC) views of both breasts were obtained. CAD: Full Field Digital Mammography with Computer Added Detection was performed. COMPARISON: Comparison is made with prior study dated 08/20/2018. FINDINGS: Breast Composition: There are scattered areas of fibroglandular density. There are no dominant masses or suspicious calcifications. No other significant abnormalities are identified. There has been no significant change since the prior study. BI/SCREEN MAMM (CAD) W/SHABNAM BILAT IMPRESSION: Stable bilateral screening mammogram. Yearly follow-up mammogram recommended. (A) ASSESSMENT CATEGORY: BIRADS Category 1: Negative. A letter regarding these results will be sent to the patient by the facility within 30 days. Approximately 10% of breast cancers are not detected by mammography. A normal mammogram should not delay biopsy of a clinically suspicious abnormality. [id number] Electronically Signed: Adiel Benton, at 12:58 EST , Service support ,
== END ==
PROVIDERS: PCP Family Medicine; Referring Provider Student in an Organized Health Care Education/Training Program; Visit Provider Student in an Organized Health Care Education/Training Program
DX: Z12.31 Encounter for screening mammogram for malignant neoplasm of breast (principal)
CPT/HCPCS: 77063; 77067

== ENCOUNTER → 2020-10-15 10:23 | Outpatient (CLI) | payer OTHER, SELFPAY ==
[2020-06-25 16:57] VITALS: BMI 32.4
[2020-10-15 11:53] LABS: Absolute Lymphocyte Count 1.59 X10^3/uL (0.83-4.51); Absolute Neutrophil Count 4.3 X10^3/uL (2.0-7.7); Basophil# 0.04 X10^3/uL; Basophil% 0.6 % (0-1); Eosinophil# 0.04 X10^3/uL; Eosinophils% 0.6 % (0-5); Hematocrit 40.4 % (37-47); Hemoglobin 12.6 g/dL (12.0-15.0); Lymphocyte # 1.59 X10^3/ul (4.0); Mean Corp Hgb Conc 31.2 g/dL (32-36); Mean Corpuscular Hgb 26.3 pg (27.0-32.0); Mean Corpuscular Volume 84.3 fL (81-99); Mean Platelet Vol. 10.9 fl (6.2-12.0); Monocyte# 0.37 X10^3/uL; Monocyte% 5.8 % (0-10); NRBC Flagged by Analyzer 0 % (0-5); Neutrophil % 67.7 % (47-70); Platelet Count 266 K/mm3 (150-450); RBC Distribution Width CV 18.4 % (11.6-14.6); RBC Distribution Width SD 56.5 fl (35.1-43.9); Red Blood Count 4.79 M/mm3 (4.2-5.4); White Blood Count 6.4 K/mm3 (4.4-11.0)
[2020-10-15 12:18] LABS: Ferritin 11 ng/mL (8-252); Iron 42 ug/dL (50-170); Iron Binding Capacity,Total 380 ug/dL (250-450)
== END ==
PROVIDERS: PCP Family Medicine; Referring Provider Family Medicine; Visit Provider Family Medicine
DX: D50.9 Iron deficiency anemia, unspecified (principal)
CPT/HCPCS: 36415; 82728; 83540; 83550; 85025

== ENCOUNTER → 2020-12-03 11:06 | Outpatient (CLI) | payer OTHER, SELFPAY ==
[2020-06-25 16:57] VITALS: BMI 32.4
[2020-12-03 12:38] LABS: Absolute Lymphocyte Count 1.76 X10^3/uL (0.83-4.51); Absolute Neutrophil Count 4.5 X10^3/uL (2.0-7.7); Basophil# 0.03 X10^3/uL; Basophil% 0.4 % (0-1); Eosinophil# 0.04 X10^3/uL; Eosinophils% 0.6 % (0-5); Hematocrit 40.4 % (37-47); Hemoglobin 13.1 g/dL (12.0-15.0); Lymphocyte # 1.76 X10^3/ul (4.0); Lymphocyte % 26.4 % (19-41); Mean Corp Hgb Conc 32.4 g/dL (32-36); Mean Corpuscular Hgb 28.4 pg (27.0-32.0); Mean Corpuscular Volume 87.4 fL (81-99); Mean Platelet Vol. 10.7 fl (6.2-12.0); Monocyte# 0.35 X10^3/uL; Monocyte% 5.2 % (0-10); NRBC Flagged by Analyzer 0 % (0-5); Neutrophil # 4.47 X10^3/uL (2.7-7.7); Neutrophil % 67.1 % (47-70); Platelet Count 239 K/mm3 (150-450); RBC Distribution Width CV 17.5 % (11.6-14.6); RBC Distribution Width SD 56.6 fl (35.1-43.9); Red Blood Count 4.62 M/mm3 (4.2-5.4); White Blood Count 6.7 K/mm3 (4.4-11.0)
[2020-12-03 13:26] LABS: ALB/GLOB Ratio 0.9 RATIO (0.9-2.4); AST(SGOT) 20 U/L (15-37); Alanine Aminotransfer ALT/SGPT 28 U/L (13-56); Albumin, Serum 3.7 g/dL (3.2-5.0); Alkaline Phosphatase 68 U/L (45-117); Anion Gap 2 (5-15); BUN 10 mg/dL (7-18); BUN/Creat Ratio 14.2 RATIO (10-20); Calcium,Total 8.6 mg/dL (8.5-10.1); Chloride 109 mmol/L (98-107); Cholesterol 193 mg/dL (200); EST Glomerular Filtration Rate 96 mL/min (>60); Est Glom Filt Rate - Afr Amer 116 mL/min (>60); Ferritin 21 ng/mL (8-252); Globulin 3.9 g/dL (2.2-4.2); Glucose 80 mg/dL (74-106); High Density Lipoprotein 45 mg/dL; Iron 81 ug/dL (50-170); Iron Binding Capacity,Total 409 ug/dL (250-450); Potassium 4.1 mmol/L (3.5-5.1); Protein, Total 7.6 g/dL (6.4-8.2); Sodium Level 138 mmol/L (136-145); Triglycerides 93 mg/dL; Very Low Density Lipoprotein 19 mg/dL (5-40)
== END ==
PROVIDERS: PCP Family Medicine; Referring Provider Family Medicine; Visit Provider Family Medicine
DX: D50.9 Iron deficiency anemia, unspecified (principal); E78.5 Hyperlipidemia, unspecified
CPT/HCPCS: 36415; 80053; 80061; 82728; 83540; 83550; 85025

== ENCOUNTER → 2021-01-06 09:27 | Outpatient (CLI) | payer OTHER, SELFPAY ==
[2020-06-25 16:57] VITALS: BMI 32.4
[2021-01-06 11:09] LABS: Ferritin 23 ng/mL (8-252); Iron 77 ug/dL (50-170); Iron Binding Capacity,Total 361 ug/dL (250-450); PERCENT IRON SATURATION 21.3 % (15.0-55.0)
== END ==
PROVIDERS: PCP Family Medicine; Referring Provider Family Medicine; Visit Provider Family Medicine
DX: D50.9 Iron deficiency anemia, unspecified (principal)
CPT/HCPCS: 36415; 82728; 83540; 83550

== ENCOUNTER → 2021-01-18 12:19 | Outpatient (CLI) | payer OTHER, SELFPAY ==
[2020-06-25 16:57] VITALS: BMI 32.4
--- NOTE | 2021-01-18 12:24 | US_ITS ---
STUDY: THYROID ULTRASOUND REASON FOR EXAM: Female, 45 years old. NODULES TECHNIQUE: Ultrasound evaluation of the thyroid was performed with real-time and static mc-scale imaging. COMPARISON: Comparison is made with prior study dated 01/27/2020. FINDINGS: RIGHT LOBE: The right lobe of the thyroid gland is enlarged and measures 5.3 cm x 2.2 cm x 1.7 cm. There is a homogeneous echotexture. There is a 5 mm x 3 mm x 4 mm well-defined hypoechoic solid nodule in the lower pole. This is essentially unchanged. LEFT LOBE: The left lobe of the thyroid gland is enlarged and measures 5.2 cm by 1.9 cm x 1.6 cm. There is a homogeneous echotexture. There is a 5 mm x 4 mm x 3 mm hypoechoic solid nodule in the lower pole. This is unchanged. ISTHMUS: The isthmus measures 5 mm. The regional lymph nodes are normal. US/Thyroid IMPRESSION: Enlarged thyroid gland. Stable solitary subcentimeter solid nodules in both lobes. Electronically Signed: Adiel Benton MD at 13:48 EDT , Service support ,
== END ==
PROVIDERS: PCP Family Medicine; Referring Provider Family Medicine; Visit Provider Family Medicine
DX: E04.2 Nontoxic multinodular goiter (principal)
CPT/HCPCS: 76536

== ENCOUNTER → 2022-05-26 | Outpatient (CLI) | payer OTHER, SELFPAY ==
[2022-05-26 12:11] LABS: Absolute Lymphocyte Count 1.39 X10^3/uL (0.83-4.51); Absolute Neutrophil Count 3.2 X10^3/uL (2.0-7.7); Basophil# 0.03 X10^3/uL; Basophil% 0.6 % (0-1); Eosinophil# 0.04 X10^3/uL; Eosinophils% 0.8 % (0-5); Hematocrit 41.5 % (37-47); Lymphocyte # 1.39 X10^3/ul (0.83-4.51); Lymphocyte % 28.4 % (19-41); Mean Corp Hgb Conc 33.7 g/dL (32-36); Mean Corpuscular Hgb 30.9 pg (27.0-32.0); Mean Corpuscular Volume 91.6 fL (81-99); Monocyte# 0.24 X10^3/uL; Monocyte% 4.9 % (0-10); NRBC Flagged by Analyzer 0 % (0-5); Neutrophil # 3.18 X10^3/uL (2.7-7.7); Neutrophil % 65.1 % (47-70); Platelet Count 249 K/mm3 (150-450); RBC Distribution Width CV 12.5 % (11.6-14.6); RBC Distribution Width SD 42.3 fl (35.1-43.9); Red Blood Count 4.53 M/mm3 (4.2-5.4); White Blood Count 4.9 K/mm3 (4.4-11.0)
[2022-05-26 12:59] LABS: ALB/GLOB Ratio 1.1 RATIO (0.9-2.4); AST(SGOT) 22 U/L (15-37); Alanine Aminotransfer ALT/SGPT 31 U/L (13-56); Albumin, Serum 3.9 g/dL (3.2-5.0); Alkaline Phosphatase 78 U/L (45-117); Anion Gap 8 (5-15); BUN 12 mg/dL (7-18); Calcium,Total 8.8 mg/dL (8.5-10.1); Chloride 106 mmol/L (98-107); Creatinine, Serum 0.75 mg/dL (0.55-1.02); EST Glomerular Filtration Rate 89 mL/min (>60); Est Glom Filt Rate - Afr Amer 107 mL/min (>60); Globulin 3.6 g/dL (2.2-4.2); Glucose 110 mg/dL (74-106); Potassium 4.4 mmol/L (3.5-5.1); Protein, Total 7.5 g/dL (6.4-8.2); Sodium Level 140 mmol/L (136-145)
[2022-05-27 11:41] LABS: Cholesterol 210 mg/dL (200); High Density Lipoprotein 44 mg/dL; Triglycerides 89 mg/dL; Very Low Density Lipoprotein 18 mg/dL (5-40)
== END | disposition home or self-care (01) ==
LOC: MFPLAB 10:28
PROVIDERS: PCP Family Medicine; Referring Provider Family Medicine; Visit Provider Family Medicine
DX: E78.5 Hyperlipidemia, unspecified (principal)
CPT/HCPCS: 36415; 80053; 80061; 85025

== ENCOUNTER → 2022-09-28 | Outpatient (CLI) | payer OTHER, SELFPAY ==
--- NOTE | 2022-09-28 10:48 | BI_ITS ---
MAMMOGRAPHY - BILATERAL SCREENING REASON FOR EXAM: Female, 47 years old. Routine annual screening examination. PERTINENT HISTORY: Aunts with breast cancer. TECHNIQUE: Digital bilateral breast shabnam (3D mammographic acquisition) in the CC and MLO projections. 2-D mediolateral oblique (MLO) and craniocaudad (CC) views of both breasts were obtained. CAD: Full Field Digital Mammography with Computer Added Detection was performed. COMPARISON: Comparison is made with prior study dated 09/15/2020 and 08/20/2018. FINDINGS: Breast Composition: There are scattered areas of fibroglandular density. There are no dominant masses or suspicious calcifications. No other significant abnormalities are identified. There has been no significant change since the prior study. BI/SCRN MAMM (CAD)W/SHABNAM BILAT IMPRESSION: Stable bilateral screening mammogram. Yearly follow-up mammogram recommended. (A) ASSESSMENT CATEGORY: BIRADS Category 1: Negative. A letter regarding these results will be sent to the patient by the facility within 30 days. Approximately 10% of breast cancers are not detected by mammography. A normal mammogram should not delay biopsy of a clinically suspicious abnormality. [id number] Electronically Signed: Adiel Benton MD at 12:19 EST ,
== END | disposition home or self-care (01) ==
LOC: OPBI 10:44
PROVIDERS: PCP Family Medicine; Visit Provider Student in an Organized Health Care Education/Training Program
DX: Z12.31 Encounter for screening mammogram for malignant neoplasm of breast (principal); Z80.3 Family history of malignant neoplasm of breast
CPT/HCPCS: 77063; 77067

== ENCOUNTER → 2022-11-30 | Outpatient (CLI) | payer OTHER, SELFPAY ==
[2022-11-30 16:09] LABS: ALB/GLOB Ratio 1.3 RATIO (0.9-2.4); AST(SGOT) 19 U/L (15-37); Alanine Aminotransfer ALT/SGPT 26 U/L (13-56); Albumin, Serum 3.9 g/dL (3.2-5.0); Alkaline Phosphatase 73 U/L (45-117); Anion Gap 8 (5-15); BUN 11 mg/dL (7-18); BUN/Creat Ratio 15.1 RATIO (10-20); Calcium,Total 8.6 mg/dL (8.5-10.1); Chloride 107 mmol/L (98-107); Cholesterol 189 mg/dL (200); Creatinine, Serum 0.73 mg/dL (0.55-1.02); EST Glomerular Filtration Rate 92 mL/min (>60); Est Glom Filt Rate - Afr Amer 111 mL/min (>60); Globulin 3.1 g/dL (2.2-4.2); Glucose 104 mg/dL (74-106); High Density Lipoprotein 37 mg/dL; Potassium 4.3 mmol/L (3.5-5.1); Sodium Level 141 mmol/L (136-145); Triglycerides 73 mg/dL; Very Low Density Lipoprotein 15 mg/dL (5-40)
== END | disposition home or self-care (01) ==
PROVIDERS: PCP Family Medicine; Visit Provider Nurse Practitioner Family
DX: E78.5 Hyperlipidemia, unspecified (principal)
CPT/HCPCS: 36415; 80053; 80061

== ENCOUNTER → 2023-06-02 | Outpatient (CLI) | payer OTHER, SELFPAY ==
[2023-06-02 10:57] LABS: Bacteria 0 SEEN /hpf (None Seen); Mucous, Urine 0 SEEN /hpf (<or=2+); Red Blood Cells-Urine 0 SEEN /hpf (0-5); White Blood Cells 0 SEEN /hpf (0-5)
[2023-06-02 12:20] LABS: Absolute Lymphocyte Count 1.62 X10^3/uL (0.83-4.51); Absolute Neutrophil Count 3.2 X10^3/uL (2.0-7.7); Basophil# 0.04 X10^3/uL; Basophil% 0.8 % (0-1); Color, Urine Yellow (Yellow); Eosinophil# 0.02 X10^3/uL; Eosinophils% 0.4 % (0-5); Glucose, Dipstick Normal (Normal); Hematocrit 41.7 % (37-47); Hemoglobin 13.8 g/dL (12.0-15.0); Ketone-Dipstick Negative (Negative); Leukocyte Esterase-Dipstick Negative /ul (Negative); Lymphocyte # 1.62 X10^3/ul (0.83-4.51); Lymphocyte % 31.6 % (19-41); Mean Corp Hgb Conc 33.1 g/dL (32-36); Mean Corpuscular Hgb 29.9 pg (27.0-32.0); Mean Corpuscular Volume 90.3 fL (81-99); Mean Platelet Vol. 11.1 fl (6.2-12.0); Monocyte% 5.8 % (0-10); NRBC Flagged by Analyzer 0 % (0-5); Neutrophil # 3.15 X10^3/uL (2.7-7.7); Neutrophil % 61.4 % (47-70); Nitrite-Dipstick Negative (Negative); Occult Blood-Urine Negative /ul (Negative); Platelet Count 246 K/mm3 (150-450); Protein-Dipstick Negative (Negative); RBC Distribution Width CV 12.7 % (11.6-14.6); RBC Distribution Width SD 41.4 fl (35.1-43.9); Red Blood Count 4.62 M/mm3 (4.2-5.4); Specific Gravity, Urine 1.005 (1.002-1.030); Urine Bilirubin Dipstick Negative (Negative); Urine Clarity Sl. Cloudy (Clear); Urine Urobilinogen Normal (Normal); White Blood Count 5.1 K/mm3 (4.4-11.0)
[2023-06-02 12:38] LABS: Squamous Epithelial Cells - UA 0-5 SEEN /hpf (5-10)
[2023-06-02 13:14] LABS: AST(SGOT) 23 U/L (15-37); Alanine Aminotransfer ALT/SGPT 38 U/L (13-56); Albumin, Serum 3.9 g/dL (3.2-5.0); Alkaline Phosphatase 97 U/L (45-117); Anion Gap 3 (5-15); BUN 10 mg/dL (7-18); BUN/Creat Ratio 13.2 RATIO (10-20); Calcium,Total 8.9 mg/dL (8.5-10.1); Chloride 108 mmol/L (98-107); Cholesterol 196 mg/dL (200); Creatinine, Serum 0.76 mg/dL (0.55-1.02); EST Glomerular Filtration Rate 87 mL/min (>60); Est Glom Filt Rate - Afr Amer 106 mL/min (>60); Globulin 3.8 g/dL (2.2-4.2); Glucose 109 mg/dL (74-106); High Density Lipoprotein 42 mg/dL; Potassium 4.8 mmol/L (3.5-5.1); Protein, Total 7.7 g/dL (6.4-8.2); Sodium Level 139 mmol/L (136-145); Triglycerides 64 mg/dL; Very Low Density Lipoprotein 13 mg/dL (5-40)
[2023-06-04 14:37] LABS: Hemoglobin A1c 5.5 % (3.8-5.6)
== END | disposition home or self-care (01) ==
LOC: MFPLAB 10:54
PROVIDERS: PCP Family Medicine; Visit Provider Family Medicine
DX: E78.5 Hyperlipidemia, unspecified (principal); R39.9 Unspecified symptoms and signs involving the genitourinary system; R73.09 Other abnormal glucose
CPT/HCPCS: 36415; 80053; 80061; 81001; 83036; 85025

== ENCOUNTER → 2023-06-12 | Outpatient (CLI) | payer OTHER, SELFPAY ==
--- NOTE | 2023-06-12 12:08 | US_ITS ---
INDICATION: MULTIPLE THYROID NODULES EXAMINATION: Ultrasound US Thyroid (eg thyroid, parathyroid, parotid) TECHNIQUE: Lujan scale and color doppler imaging was performed of the thyroid gland. COMPARISON: 01/18/2021 FINDINGS: RIGHT THYROID LOBE: 5.1 x 2.0 x 1.3 cm. Homogeneous echotexture with normal vascularity. [Single nodule in the lower pole measures 6 x 4 x 2 mm, mixed solid and cystic, overall hypoechoic, wider than tall with ill-defined margins and no associated echogenic foci. TI RADS level 3 or mildly suspicious but too small for fine-needle aspiration or routine follow-up. LEFT THYROID LOBE: 4.7 x 1.7 x 1.3 cm. Homogeneous echotexture with normal vascularity. [Single nodule redemonstrated in the lower pole measures 7 x 6 x 4 mm, mixed solid and cystic, overall hypoechoic, wider than tall with well-defined margins and no associated echogenic foci. TI RADS level 3 or mildly suspicious but too small for fine-needle aspiration or routine follow-up. ISTHMUS: 3 mm. No thyroid nodules are present. US/Thyroid IMPRESSION: Interval slight enlargement of the bilateral thyroid nodules which are both level 3 or mildly suspicious but too small for fine-needle aspiration or routine follow-up. Electronically Signed: Umair Melara MD at 18:08 EDT ,
== END | disposition home or self-care (01) ==
PROVIDERS: PCP Family Medicine; Referring Provider Family Medicine; Visit Provider Family Medicine
DX: E04.2 Nontoxic multinodular goiter (principal)
CPT/HCPCS: 76536

== ENCOUNTER → 2023-10-16 | Outpatient (CLI) | payer OTHER, SELFPAY ==
--- OUTSIDE RECORDS SUMMARY | 2023-10-16 11:50 | XMS RPT_ITS | CCD ---
Author Name Unknown Address [facility] [employer] [facility] [address] [place] [address] Organization [facility] Care Team Providers Care Transformer Shop Supervisor Name Role Phone Unavailable Primary Care Provider GILBERT Kapadia Attending Unavailable Allergies Allergy Classification Reported Allergen(s) Allergy Type Date of Onset Reaction(s) Facility (3 sources) Acetaminophen / HYDROcodone; Translations: [HYDROCODONE-ACETA MINOPHEN] Drug Allergy 05-19-2023 Itching [facility] (3 sources) Acetaminophen / oxyCODONE; Translations: [OXYCODONE-ACETAMI NOPHEN] Drug Allergy 05-19-2023 Itching [facility] Medications Completed/Discontinued Medications Medication Drug Class(es) Dates Sig (Normalized) Sig (Original) aspirin 81 mg oral tablet (1 source) Platelet Aggregation Inhibitor, Nonsteroidal Anti-inflammatory Drug take 81 mg by mouth once daily LINDA CHEWABLE ASPIRIN ORAL Take 81 mg by mouth once daily. 0 Active Problems Problem Classification Problem Date Documented Da te Episodic/Chronic Other screening for suspected conditions (not mental disorders or infectious disease) (1 source) Patient encounter status; Translations: [Encounter for screening mammogram for malignant neoplasm of breast] 06-23-2023 Episodic Results Test Name Value Interpretation Reference Range Facil ity Vital Signs Date Time Vital Sign Value Performing Clinician Faci lity 06-23-2023 10:22-0400 Body height 162.6 cm Gilbert Colónf SILVICULTURE PROFESSOR.BEENA Work Phone: [facility] 06-23-2023 10:22-0400 Body weight 86.64 kg Gilbert Raymundo SILVICULTURE PROFESSOR.BEENA Work Phone: [facility] 06-23-2023 10:22-0400 Diastolic blood pressure 86 mm[Hg] Gilbert Milan SILVICULTURE PROFESSOR.RN HYPERBARIC Work Phone: [facility] 06-23-2023 10:22-0400 Heart rate 66 /min Gilbert Asmita SILVICULTURE PROFESSOR.RN HYPERBARIC Work Phone: [facility] 06-23-2023 10:22-0400 Respiratory rate 14 /min Gilbert Asmita SILVICULTURE PROFESSOR.RN HYPERBARIC Work Phone: [facility] 06-23-2023 10:22-0400 SaO2% (BldA) [Mass fraction] 96 % Gilbert Milan SILVICULTURE PROFESSOR.RN HYPERBARIC Work Phone: [facility] 06-23-2023 10:22-0400 Systolic blood pressure 134 mm[Hg] Gilbert Asmita SILVICULTURE PROFESSOR.RN HYPERBARIC Work Phone: [facility] Encounters Encounter Date Encounter Type Care Provider Facility Start: 06-23-2023 End: 06-23-2023 ambulatory GILBERT DENTONCALF Facility:[facility] Start: 06-23-2023 End: 06-23-2023 Patient encounter procedure Gilbert Colónf SILVICULTURE PROFESSOR.BEENA Work Phone: OB/Gynecology Procedures Date Procedure Procedure Detail Performing Clinician Start: 09-28-2022 Mammography Gilbert Denton ramin SILVICULTURE PROFESSOR.RN HYPERBARIC Work Phone: Start: 06-27-2018 PAP FLUID CERVICAL SCREENING [facility] Provider Plan of Treatment Date Care Activity Detail Author Start: 09-28-2023 Mammography [facility] Start: 06-27-2023 HPV TESTING HPV TESTING [facility] Start: 06-27-2023 PAP TESTING PAP TESTING [facility] Start: 05-12-2023 Influenza vaccination C [facility] Start: 09-11-2022 DEPRESSION ASSESSMENT DEPRESSION ASS ESSMENT [facility] Start: 2022 COLOGUARD (FIT-DNA) COLOGUARD (FIT-D NA) [facility] Start: 2022 Colonoscopy COLONOSCOPY [facility] Start: 2022 COLORECTAL CANCER SCREENING COLORECTAL CANCER SCREENING [facility] Start: [address] COLONOGRAPHY [facility] Start: 2022 DIABETES SCREEN DIABETES SCREEN [facility] Start: 2022 Diabetes Screening Diabetes Screenin g [facility] Start: 2022 FECAL OCCULT BLOOD FECAL OCCULT BLOO D [facility] Start: 2022 Lipid 1996 panel - S jason or Plasma Lipid Screening [facility] Start: 2022 LIPID SCREEN LIPID SCREEN [facility] Start: 2022 SIGMOIDOSCOPY SIGMOIDOSCOPY [facility] Start: 1996 Urine microalbumin profile [facility] Start: 1995 HEPATITIS C SCREENING HEPATITIS C SC REENING [facility] Start: 1995 HIV SCREENING HIV SCREENING [facility] Start: 1977 COVID-19 VACCINE (#1) COVID-19 VACCI NE (#1) [facility] Start: 1977 HEPATITIS B (1 of 3 - 3-dose series) HEPATITIS B (1 of 3 - 3-dose series) [facility] Start: 1977 Hepatitis B Vaccine (1 of 3 - 3-dose series) Hepatitis B Vaccine (1 of 3 - 3-dose series) [facility] c [facility] Payers Date Payer Category Payer Unknown [employer] [id number] 2022-Present [phone] [address] [place] [address] PPO [id number] 2022 Unknown [id number] Social History Date Type Detail Facility [facility]: [facility] Start: 05-19-2023 Alcohol intake Current non-dr electromechanical inspector of alcohol (finding) [facility] Start: 1975 Sex Assigned At Not on file [facility] Start: 06-23-2023 Gender identity Not on file [facility] Start: 06-23-2023 Tobacco use and exposure Smoke less tobacco non-user [facility] Start: 06-23-2023 Alcohol intake Ex-drinker (finding) [facility] Start: 06-23-2023 History of Social function [facility] National Score (1-10 0), lower number is lower risk 47 [facility] Progress note 06-23-2023 Note Date & Type Note Facility 06-23-2023 Note HNO ID: [id number] Author: Gilbert Raymundo APRN.RN HYPERBARIC Service: ? Author Type: Nurse Practitioner Type: Progress Notes Filed: 06/23/2023 11:10 AM Note Text: Lockstitch Sleeve Setter offered: Patient declines. Kimmie is a 48 year old No obstetric history on file. who presents for an annual gynecologic exam without complaints. Transfer from [place] Menses: hysterectomy 2019. Contraception: hysterectomy HPV vaccine: No Last Pap: 06/27/2018 normal HPV: N/A History of abnormal pap: Yes 2007 Last mammogram: 2022normal @ [facility] Sexually active: Yes Pain with intercourse: Yes due to dryness Postcoital bleeding: No OB History No obstetric history on file. Log Haul Chain Feeder History LMP: 01/14/2008, Having periods Age at Menarche: Age at First : Age at Menopause: Log Haul Chain Feeder History Comments: Sexual Activity: Yes; Male Contraception: None PAST MEDICAL HISTORY Diagnosis Date NEGATIVE MEDICAL HISTORY PAST SURGICAL HISTORY Procedure Laterality Date APPENDECTOMY 04/21/2006 DELIVERY ONLY x2 PAST SURGICAL HISTORY OF 04/11/2006 appendix removal REMOVAL GALLBLADDER 03/23/2011 TOTAL ABDOM HYSTERECTOMY 06/25/2020 BS, Cysto FAMILY HISTORY Problem Relation Age of Onset Heart Father Diabetes Maternal Grandfather Stroke Maternal Grandmother Heart Paternal Grandfather SOCIAL HISTORY Social History Tobacco Use Smoking status: Never Substance Use Topics Alcohol use: No Drug use: No REVIEW OF SYSTEMS Abdomen: No abdominal pain, nausea, vomiting, diarrhea, or constipation. No bloating, early satiety, indigestion, or increased flatulence. Bladder: No dysuria, gross hematuria, urinary frequency, urinary urgency, or incontinence. Breast: No breast lumps, nipple d/c, overlying skin changes, redness or skin retraction. Allergies and current medication updated:Yes EXAM: LMP 01/14/2008 GENERAL: pleasant, female in no apparent distress HEENT: Normocephalic, atraumatic, mucus membranes moist, and no lesions NECK: Supple, full range of motion, no adenopathy, and thyroid normal DERMATOLOGY: Normal, without lesions, non-icteric, and non-hirsute BREAST: soft, non-tender, symmetric, no dominant mass, normal nipple-areolar complex, no lymphadenopathy, and no nipple discharge CHEST: Normal inspiratory effort ABDOMEN: soft, non-tender, and no masses PELVIC: external genitalia normal, normal Bartholin's glands, urethra, [place]'s glands, no vulvar lesions, physiologic discharge present, normal appearing perineal body and perianal region, cervix surgically absent BIMANUAL: no adnexal masses, non-tender, and uterus surgically absent RECTOVAGINAL: deferred. NEURO: alert and oriented x3,exam grossly non-focal EXTREMITIES: normal ASSESSMENT/PLAN: 1) Health maintenance: Pap/HPV up to date. Mammogram ordered. Nutrition, exercise and routine health maintenance exams reviewed. Calcium/Vitamin D supplementation information provided. 2) Contraception: hysterectomy. Contraceptive options reviewed and information provided. 3) STD screening: Declined STD check. 4) Follow up one year or sooner as needed Gilbert Raymundo APRN.BEENA [facility] History of Present illness Narrative 06-23-2023 Gilbert Raymundo APRN.BEENA - 06/23/2023 10:14 AM EDT Note Date & Type Note Facility 06-23-2023 History of Presen t illness Narrative Lockstitch Sleeve Setter offered: Patient declines. Kimmie is a 48 year old No obstetric history on file. who presents for an annual gynecologic exam without complaints. Transfer from [place] Menses: hysterectomy 2019. Contraception: hysterectomy HPV vaccine: No Last Pap: 06/27/2018 normal HPV: N/A History of abnormal pap: Yes 2007 Last mammogram: 2022normal @ [facility] Sexually active: Yes Pain with intercourse: Yes due to dryness Postcoital bleeding: No OB History No obstetric history on file. Log Haul Chain Feeder History LMP: 01/14/2008, Having periods Age at Menarche: Age at First : Age at Menopause: Log Haul Chain Feeder History Comments: Sexual Activity: Yes; Male Contraception: None PAST MEDICAL HISTORY Diagnosis Date NEGATIVE MEDICAL HISTORY PAST SURGICAL HISTORY Procedure Laterality Date APPENDECTOMY 04/21/2006 DELIVERY ONLY x2 PAST SURGICAL HISTORY OF 04/11/2006 appendix removal REMOVAL GALLBLADDER 03/23/2011 TOTAL ABDOM HYSTERECTOMY 06/25/2020 BS, Cysto FAMILY HISTORY Problem Relation Age of Onset Heart Father Diabetes Maternal Grandfather Stroke Maternal Grandmother Heart Paternal Grandfather SOCIAL HISTORY Social History Tobacco Use Smoking status: Never Substance Use Topics Alcohol use: No Drug use: No REVIEW OF SYSTEMS Abdomen: No abdominal pain, nausea, vomiting, diarrhea, or constipation. No bloating, early satiety, indigestion, or increased flatulence. Bladder: No dysuria, gross hematuria, urinary frequency, urinary urgency, or incontinence. Breast: No breast lumps, nipple d/c, overlying skin changes, redness or skin retraction. Allergies and current medication updated:Yes EXAM: LMP 01/14/2008 GENERAL: pleasant, female in no apparent distress HEENT: Normocephalic, atraumatic, mucus membranes moist, and no lesions NECK: Supple, full range of motion, no adenopathy, and thyroid normal DERMATOLOGY: Normal, without lesions, non-icteric, and non-hirsute BREAST: soft, non-tender, symmetric, no dominant mass, normal nipple-areolar complex, no lymphadenopathy, and no nipple discharge CHEST: Normal inspiratory effort ABDOMEN: soft, non-tender, and no masses PELVIC: external genitalia normal, normal Bartholin's glands, urethra, [place]'s glands, no vulvar lesions, physiologic discharge present, normal appearing perineal body and perianal region, cervix surgically absent BIMANUAL: no adnexal masses, non-tender, and uterus surgically absent RECTOVAGINAL: deferred. NEURO: alert and oriented x3,exam grossly non-focal EXTREMITIES: normal ASSESSMENT/PLAN: 1) Health maintenance: Pap/HPV up to date. Mammogram ordered. Nutrition, exercise and routine health maintenance exams reviewed. Calcium/Vitamin D supplementation information provided. 2) Contraception: hysterectomy. Contraceptive options reviewed and information provided. 3) STD screening: Declined STD check. 4) Follow up one year or sooner as needed Gilbert Raymundo APRN.CNP documented in this encounter [facility] Evaluation note Note Date & Type Note Facility documented in this encounter [facility] Summary Purpose Family History No Family History Records Found Advance Directives No Advanced Directives Records Found Additional Source Comments Source Comments (unrecognize d section and content) In the event this informatio n is protected by the Federal Confidentiality of Alcohol and Drug Abuse Patient Records regulations: The Federal rules restrict any use of the information to criminally investigate or prosecute any alcohol or drug abuse patient.[facility] the event this information is protected by the Federal Confidentiality of Alcohol and Drug Abuse Patient Records regulations: The Federal rules restrict any use of the information to criminally investigate or prosecute any alcohol or drug abuse patient.[facility] Reason for Visit (unrecogniz ed section and content) Reason Comments Log Haul Chain Feeder Exam Specialty Diagnoses / Procedures Referred By Jam barrera Referred To Contact SOCKET PULLER Diagnoses Ruptured bladder LAB ASST annual transfer from [place] Procedures NEW PATIENT VISIT LEVEL 1 [facility] annual Self Gilbert Raymundo, JATINDER.RN HYPERBARIC [address] [place] [address] Referral ID Status Reason Start Date Expiration Date V isits Requested Visits Authorized [id number] Open OON/Self Pay Override 05/17/2023 11/13/2023 1 0 INFORMATION SOURCE (unrecogn ized section and content) FOR RECORDS PERTAINING TO PATIENTS WHO ARE OR HAVE BEEN ENROLLED IN A CHEMICAL DEPENDENCY/SUBSTANCEABUSE PROGRAM, SOME INFORMATION MAY BE OMITTED. This clinical summary was aggregated from multiple sources. Caution should be exercised in using it in the provision of clinical care. This summary normalizes information from multiple sources, and as a consequence, information in this document may materially change the coding, format and clinical context of patient data. In addition, data may be omitted in some cases. CLINICAL DECISIONS SHOULD BE BASED ON THE PRIMARY CLINICAL RECORDS. [facility] [employer] [facility]. provides no warranty or guarantee of the accuracy or completeness of information in this document.
--- NOTE | 2023-10-16 11:51 | BI_ITS ---
MAMMOGRAPHY - BILATERAL SCREENING REASON FOR EXAM: Female, 48 years old. Routine annual screening examination. PERTINENT HISTORY: Aunts with breast cancer. TECHNIQUE: Digital bilateral breast shabnam (3D mammographic acquisition) in the CC and MLO projections. 2-D mediolateral oblique (MLO) and craniocaudad (CC) views of both breasts were obtained. CAD: Full Field Digital Mammography with Computer Added Detection was performed. COMPARISON: Comparison is made with prior study dated September 28, 2022 and September 15, 2020. FINDINGS: Breast Composition: There are scattered areas of fibroglandular density. There are no dominant masses or suspicious calcifications. No other significant abnormalities are identified. There has been no significant change since the prior study. BI/SCRN MAMM (CAD)W/SHABNAM BILAT IMPRESSION: Stable bilateral screening mammogram. Yearly follow-up mammogram recommended. (A) ASSESSMENT CATEGORY: BIRADS Category 1: Negative. A letter regarding these results will be sent to the patient by the facility within 30 days. Approximately 10% of breast cancers are not detected by mammography. A normal mammogram should not delay biopsy of a clinically suspicious abnormality. [id number] Electronically Signed: Adiel Benton MD at 12:34 EST ,
== END | disposition home or self-care (01) ==
LOC: OPBI 11:47
PROVIDERS: PCP Family Medicine; Referring Provider Nurse Practitioner Family; Visit Provider Nurse Practitioner Family
DX: Z12.31 Encounter for screening mammogram for malignant neoplasm of breast (principal); Z80.3 Family history of malignant neoplasm of breast
CPT/HCPCS: 77063; 77067

== ENCOUNTER → 2023-12-01 | Outpatient (CLI) | payer OTHER, SELFPAY | END | disposition home or self-care (01) | LOC: MFPLAB 11:02 | PROVIDERS: PCP Family Medicine; Visit Provider Family Medicine | DX: Z00.00 Encounter for general adult medical examination without abnormal findings (principal) ==

== ENCOUNTER → 2024-06-11 | Outpatient (CLI) | payer OTHER, SELFPAY ==
[2024-06-11 12:14] LABS: Absolute Lymphocyte Count 1.57 X10^3/uL (0.83-4.51); Absolute Neutrophil Count 3.8 X10^3/uL (2.0-7.7); Basophil# 0.03 X10^3/uL; Basophil% 0.5 % (0-1); Eosinophil# 0.04 X10^3/uL; Eosinophils% 0.7 % (0-5); Hematocrit 41.5 % (37-47); Hemoglobin 13.5 g/dL (12.0-15.0); Lymphocyte # 1.57 X10^3/ul (0.83-4.51); Lymphocyte % 27.6 % (19-41); Mean Corp Hgb Conc 32.5 g/dL (32-36); Mean Corpuscular Hgb 30.1 pg (27.0-32.0); Mean Corpuscular Volume 92.6 fL (81-99); Mean Platelet Vol. 10.8 fl (6.2-12.0); Monocyte# 0.29 X10^3/uL; Monocyte% 5.1 % (0-10); NRBC Flagged by Analyzer 0 % (0-5); Neutrophil # 3.75 X10^3/uL (2.7-7.7); Neutrophil % 65.9 % (47-70); Platelet Count 233 K/mm3 (150-450); RBC Distribution Width CV 12.5 % (11.6-14.6); RBC Distribution Width SD 42.6 fl (35.1-43.9); Red Blood Count 4.48 M/mm3 (4.2-5.4); White Blood Count 5.7 K/mm3 (4.4-11.0)
[2024-06-11 12:48] LABS: AST(SGOT) 23 U/L (15-37); Alanine Aminotransfer ALT/SGPT 33 U/L (13-56); Albumin, Serum 3.9 g/dL (3.2-5.0); Alkaline Phosphatase 86 U/L (45-117); Anion Gap 5 (5-15); BUN 13 mg/dL (7-18); BUN/Creat Ratio 15.6 RATIO (10-20); Calcium,Total 9.4 mg/dL (8.5-10.1); Chloride 108 mmol/L (98-107); Cholesterol 211 mg/dL (200); Creatinine, Serum 0.83 mg/dL (0.55-1.02); EST Glomerular Filtration Rate 78 mL/min (>60); Est Glom Filt Rate - Afr Amer 95 mL/min (>60); Glucose 104 mg/dL (74-106); High Density Lipoprotein 46 mg/dL; Potassium 4.4 mmol/L (3.5-5.1); Protein, Total 7.9 g/dL (6.4-8.2); Sodium Level 140 mmol/L (136-145); Triglycerides 132 mg/dL; Very Low Density Lipoprotein 26 mg/dL (5-40)
[2024-06-12 17:07] LABS: Hemoglobin A1c 5.5 % (3.8-5.6)
== END | disposition home or self-care (01) ==
LOC: MFPLAB 10:09
PROVIDERS: PCP Family Medicine; Visit Provider Family Medicine
DX: R73.09 Other abnormal glucose (principal); E78.5 Hyperlipidemia, unspecified
CPT/HCPCS: 36415; 80053; 80061; 83036; 85025

== ENCOUNTER → 2024-06-19 | Outpatient (CLI) | payer OTHER, SELFPAY ==
--- NOTE | 2024-06-19 11:41 | US_ITS ---
INDICATION: nodule EXAMINATION: Ultrasound US Thyroid (eg thyroid, parathyroid, parotid) TECHNIQUE: Lujan scale and color doppler imaging was performed of the thyroid gland. COMPARISON: June 12, 2023 FINDINGS: RIGHT THYROID LOBE: 5.2 x 2.4 x 1.4 cm. Homogeneous echotexture with normal vascularity. [There is a stable minimally complex well-circumscribed 0.5 x 0.5 x 0.3 cm nodule. LEFT THYROID LOBE: 4.8 x 1.8 x 1.2 cm. Homogeneous echotexture with normal vascularity. [There is a minimally complex 0.6 x 0.4 x 0.3 cm nodule within the left lobe that has decreased since the prior examination previously measuring 0.7 x 0.6 x 0.4 cm. ISTHMUS: 0.3 cm. No thyroid nodules are present. US/Thyroid IMPRESSION: Stable right-sided thyroid nodule measuring up to 0.5 x 0.5 x 0.3 cm and an interval decrease in size of left-sided nodule now measuring 0.6 x 0.4 x 0.3 cm. Electronically Signed: Kathleen Gonzalez MD at 15:23 EDT ,
== END | disposition home or self-care (01) ==
PROVIDERS: PCP Family Medicine; Referring Provider Family Medicine; Visit Provider Family Medicine
DX: E04.2 Nontoxic multinodular goiter (principal)
CPT/HCPCS: 76536

== ENCOUNTER → 2024-11-18 | Outpatient (CLI) | payer OTHER, SELFPAY ==
--- NOTE | 2024-11-18 10:54 | BI_ITS ---
PROCEDURE: SCRN MAMM (CAD)W/SHABNAM BILAT REASON FOR EXAM: F, Age 49 y/o, routine screening mammogram. Aunts with breast cancer. TECHNIQUE: Bilateral screening digital breast tomosynthesis with 2D and 3D images. Computer aided detection. COMPARISON: Prior exam(s) dating back to October 16, 2023.. FINDINGS: There are scattered areas of fibroglandular density. Stable examination. No suspicious masses, areas of developing architectural distortion, or suspicious calcifications. BI/SCRN MAMM (CAD)W/SHABNAM BILAT IMPRESSION: BI-RADS 1: NEGATIVE. RECOMMEND ANNUAL MAMMOGRAPHIC SCREENING. Follow-up code: Routine Follow-up The patient will be notified of the results by letter. Reading Location: [place] [address]
== END | disposition home or self-care (01) ==
PROVIDERS: PCP Family Medicine; Referring Provider Nurse Practitioner Family; Visit Provider Nurse Practitioner Family
DX: Z12.31 Encounter for screening mammogram for malignant neoplasm of breast (principal); Z80.3 Family history of malignant neoplasm of breast
CPT/HCPCS: 77063; 77067

== ENCOUNTER → 2024-12-13 | Outpatient (CLI) | payer OTHER, SELFPAY ==
[2024-12-13 12:15] LABS: Absolute Lymphocyte Count 1.61 X10^3/uL (0.83-4.51); Absolute Neutrophil Count 3.8 X10^3/uL (2.0-7.7); Basophil# 0.05 X10^3/uL; Basophil% 0.8 % (0-1); Eosinophil# 0.04 X10^3/uL; Eosinophils% 0.7 % (0-5); Hematocrit 40.2 % (37-47); Hemoglobin 13.3 g/dL (12.0-15.0); Lymphocyte # 1.61 X10^3/ul (0.83-4.51); Lymphocyte % 27.2 % (19-41); Mean Corp Hgb Conc 33.1 g/dL (32-36); Mean Corpuscular Hgb 30.6 pg (27.0-32.0); Mean Corpuscular Volume 92.4 fL (81-99); Mean Platelet Vol. 10.9 fl (6.2-12.0); Monocyte# 0.37 X10^3/uL; Monocyte% 6.3 % (0-10); NRBC Flagged by Analyzer 0 % (0-5); Neutrophil # 3.84 X10^3/uL (2.7-7.7); Neutrophil % 64.8 % (47-70); Platelet Count 234 K/mm3 (150-450); RBC Distribution Width CV 12.3 % (11.6-14.6); RBC Distribution Width SD 41.7 fl (35.1-43.9); Red Blood Count 4.35 M/mm3 (4.2-5.4); White Blood Count 5.9 K/mm3 (4.4-11.0)
[2024-12-13 13:29] LABS: ALB/GLOB Ratio 1.5 RATIO (0.9-2.4); AST(SGOT) 27 U/L (<=31); Alanine Aminotransfer ALT/SGPT 23 U/L (<=34); Albumin, Serum 4.4 g/dL (3.5-5.0); Alkaline Phosphatase 72 U/L (35-104); Anion Gap 11 (5-15); BUN 13 mg/dL (4-19); BUN/Creat Ratio 18.1 RATIO (10-20); Calcium,Total 9.4 mg/dL (7.6-11.0); Carbon Dioxide 23.8 mmol/L (21.0-32.0); Chloride 107 mmol/L (98-108); Cholesterol 212 mg/dL (<=200); EST Glomerular Filtration Rate 107 (>60); Glucose 91 mg/dL (70-99); High Density Lipoprotein 45 mg/dL; Low Density Lipoprotein Calc. 153 mg/dL; Potassium 4.4 mmol/L (3.3-5.1); Protein, Total 7.5 g/dL (5.9-8.4); Sodium Level 142 mmol/L (133-145); Total Bilirubin 0.27 mg/dL (0.00-1.30); Triglycerides 71 mg/dL; Very Low Density Lipoprotein 14 mg/dL (5-40); cholesterol:hdl ratio screen 4.74
== END | disposition home or self-care (01) ==
LOC: MFPLAB 11:12
PROVIDERS: PCP Family Medicine
DX: E78.5 Hyperlipidemia, unspecified (principal)
CPT/HCPCS: 36415; 80053; 80061; 85025

== ENCOUNTER → 2025-06-12 | Outpatient (CLI) | payer OTHER, SELFPAY ==
[2025-06-12 15:24] LABS: Hematocrit 40.5 % (37-47); Hemoglobin 13.4 g/dL (12.0-15.0); Immature Granulocytes Count 0.020 X10^3/uL (0.0-0.0); Mean Corp Hgb Conc 33.1 g/dL (32-36); Mean Corpuscular Volume 90.2 fL (81-99); Mean Platelet Vol. 11.1 fl (6.2-12.0); NRBC Flagged by Analyzer 0 % (0-5); Platelet Count 251 K/mm3 (150-450); RBC Distribution Width CV 12.9 % (11.6-14.6); RBC Distribution Width SD 43.0 fl (35.1-43.9); Red Blood Count 4.49 M/mm3 (4.2-5.4); White Blood Count 5.4 K/mm3 (4.4-11.0)
[2025-06-12 16:09] LABS: AST(SGOT) 26 U/L (<=31); Alanine Aminotransfer ALT/SGPT 25 U/L (<=34); Albumin, Serum 4.4 g/dL (3.5-5.0); Alkaline Phosphatase 67 U/L (35-104); Anion Gap 13 (5-15); BUN 14 mg/dL (4-19); BUN/Creat Ratio 20.2 RATIO (10-20); Calcium,Total 9.5 mg/dL (7.6-11.0); Carbon Dioxide 23.6 mmol/L (21.0-32.0); Chloride 105 mmol/L (98-108); Cholesterol 195 mg/dL (<=200); Globulin 3.0 g/dL (2.2-4.2); Glucose 106 mg/dL (70-99); Low Density Lipoprotein Calc. 137 mg/dL; Potassium 4.2 mmol/L (3.3-5.1); Triglycerides 105 mg/dL; Very Low Density Lipoprotein 21 mg/dL (5-40); cholesterol:hdl ratio screen 5.30
== END | disposition home or self-care (01) ==
LOC: MFPLAB 11:00
PROVIDERS: PCP Family Medicine; Referring Provider Family Medicine; Visit Provider Family Medicine
DX: R73.09 Other abnormal glucose (principal); E78.5 Hyperlipidemia, unspecified
CPT/HCPCS: 36415; 80053; 80061; 83036; 85025